=== PATIENT | male | born 1945 | race Caucasian/White ===

== ENCOUNTER 2024-05-25 12:22 | Outpatient (CLI) | payer MEDICARE | END 2024-05-25 12:23 | disposition home or self-care (01) | LOC: CSHCP 12:22 | PROVIDERS: ATTEND Internal Medicine | DX: R06.09 Other forms of dyspnea (principal) | CPT/HCPCS: 94060; 94664; 94726; 94729; 94760 ==

== ENCOUNTER 2024-07-09 08:20 | Outpatient (CLI) | payer MEDICARE | END 2024-07-09 08:21 | disposition home or self-care (01) | LOC: CSHSLEEP 08:20 | PROVIDERS: ATTEND Internal Medicine | DX: G47.33 Obstructive sleep apnea (adult) (pediatric) (principal) | CPT/HCPCS: 95800 ==